=== PATIENT | female | born 1970 | race Caucasian/White ===

== ENCOUNTER 2016-07-22 20:30 | Emergency (ER) | payer MEDICARE ==
[~2016-07-22] VITALS: Ht 177.8 cm; Wt 79.8 kg
[~2016-07-22 20:30] MED LIST: CEROVITE ADVANC1 TAB PO; CYMBALTA20 MG PO
[2016-07-22] MEDS ORDERED: RISPERDAL0.25 MG PO (21:54)
[2016-07-22] MEDS ORDERED: ATIVAN0.5 MG PO (21:54)
[2016-07-22] MEDS ORDERED: RISPERDAL0.5 MG PO (21:55)
[2016-07-22] MEDS ORDERED: ZOLOFT50 MG PO (21:56)
[2016-07-22] MEDS ORDERED: ZOLOFT100 MG PO (21:56)
[2016-07-22] MEDS ORDERED: BENADRYL25 MG PO (21:57)
[2016-07-22] MEDS ORDERED: TYLENOL500 MG PO (21:57)
== END 2016-07-22 22:48 | disposition short-term general hospital (02) ==
LOC: ER 20:30
DX: F20.9 Schizophrenia, unspecified (principal); F15.90 Other stimulant use, unspecified, uncomplicated; F41.9 Anxiety disorder, unspecified; F32.9 Major depressive disorder, single episode, unspecified; G47.00 Insomnia, unspecified
CPT/HCPCS: G0477